=== PATIENT | female | born 1970 | race Caucasian/White ===

== ENCOUNTER → 2017-06-24 | Outpatient (CLI) | payer BC, OTHER ==
--- NOTE | 2017-06-27 13:32 | Diagnostic Imaging Report ---
INDICATION: Routine screening. COMPARISON: Comparison is made with prior study from 01/30/2008. The current study was also evaluated with a Computer Aided Detection (CAD) system. FINDINGS: Scattered fibroglandular densities are identified bilaterally. Circumscribed density in the inner aspect of the right breast is best seen on the CC view. This was not well visualized on prior exam. This could potentially represent a skin mole. The left breast appears stable. No malignant-appearing microcalcifications are seen. The axillae are unremarkable. IMPRESSION: Circumscribed density inner right breast on CC view. This could potentially represent a skin mole. Additional imaging is recommended. ACR BI-RADS Category 0: Incomplete. (Needs additional imaging evaluation). Result letter will be mailed to the patient. Note: At least 10% of breast cancer is not imaged by mammography. Dictated by: Dictated on workstation # [id number]
== END ==
LOC: RAD 09:36
PROVIDERS: ATTEND Obstetrics & Gynecology
DX: Z12.31 Encounter for screening mammogram for malignant neoplasm of breast (principal)
CPT/HCPCS: 77067

== ENCOUNTER → 2017-07-08 | Outpatient (CLI) | payer OTHER ==
--- NOTE | 2017-07-08 19:02 | Diagnostic Imaging Report ---
INDICATION: Right breast density. COMPARISON: Correlation is made with diagnostic mammogram earlier the same day. FINDINGS: Sonographic interrogation of the inner right breast was performed. There is a circumscribed hypoechoic mass just below the skin surface of the right breast at the 4 o'clock location, 10 cm from the nipple, measuring 8 mm x 5 mm x 7 mm. This demonstrates posterior acoustic enhancement. No internal vascularity is seen. Features are consistent with a sebaceous cyst. No other abnormalities are seen. IMPRESSION: Sebaceous cyst at the 4 o'clock location of the right breast at posterior depth corresponding with the mammographic abnormality. The patient may return to routine annual screening mammography. ACR BI-RADS Category 2: Benign findings. Dictated by: Dictated on workstation # [id number]
--- NOTE | 2017-07-08 19:02 | Diagnostic Imaging Report ---
INDICATION: Right breast density. Patient presents for additional views. Correlation is made with recent screening study from 06/24/2017. The current study was also evaluated with a Computer Aided Detection (CAD) system. Patient returned and 90 degree lateral view as well as spot compression CC and ML views were obtained utilizing 3-D mammography. There is a circumscribed density in the far posterior and inner aspect of the right breast best seen on the spot compression CC view. This appears just below the skin surface and may represent small cyst. No other abnormality is seen. IMPRESSION: Persistent circumscribed density far posterior right breast medially, perhaps a small cyst. Further evaluation with ultrasound is recommended. ACR BI-RADS Category 0: Incomplete. (Needs additional imaging evaluation). Result letter will be mailed to the patient. Note: At least 10% of breast cancer is not imaged by mammography. Dictated by: Dictated on workstation # [id number]
== END ==
LOC: RAD 08:09
PROVIDERS: ATTEND Obstetrics & Gynecology
DX: N60.81 Other benign mammary dysplasias of right breast (principal)

== ENCOUNTER → 2018-06-23 | Outpatient (CLI) | payer OTHER ==
--- NOTE | 2018-06-23 21:18 | Diagnostic Imaging Report ---
INDICATION: Routine screening. Comparison is made with prior mammogram from 06/24/2017. 2-D and 3-D bilateral screening mammography was performed with computer-aided Detection (CAD) system. FINDINGS: Scattered fibroglandular densities are identified bilaterally. Circumscribed density in the far posteromedial right breast appears stable. No new mass or malignant-appearing microcalcifications are seen. There is benign calcification on the left. The axillae are unremarkable. IMPRESSION: No mammographic features suspicious for malignancy are identified. ACR BI-RADS Category 2: Benign findings. Result letter will be mailed to the patient. Note: At least 10% of breast cancer is not imaged by mammography. Dictated by: Dictated on workstation # [id number]
== END ==
LOC: RAD 07:16
PROVIDERS: ATTEND Obstetrics & Gynecology
DX: Z12.31 Encounter for screening mammogram for malignant neoplasm of breast (principal)
CPT/HCPCS: 77067

== ENCOUNTER → 2019-06-29 | Outpatient (CLI) | payer OTHER ==
--- NOTE | 2019-07-02 08:45 | Diagnostic Imaging Report ---
INDICATION: Screening The current study was also evaluated with a Computer Aided Detection (CAD) system. 3-D Tomographic imaging was also performed. Comparison made with prior examination of 06/23/2018 and 06/24/2017. FINDINGS: There are scattered fibroglandular densities bilaterally. There is an unchanged benign-appearing nodular density medial right breast. Benign type calcification of left breast. There is no new dominant mass between lesion or suspicious calcination identified. Skin nipples and axilla are unremarkable. IMPRESSION: Category 2 benign. ACR BI-RADS Category 2: Benign findings. Result letter will be mailed to the patient. Note: At least 10% of breast cancer is not imaged by mammography. Dictated by: Dictated on workstation # [id number]
== END ==
LOC: RAD 15:37
PROVIDERS: ATTEND Obstetrics & Gynecology
DX: Z12.31 Encounter for screening mammogram for malignant neoplasm of breast (principal)
CPT/HCPCS: 77067

== ENCOUNTER → 2020-04-23 | Outpatient (CLI) | payer OTHER ==
[~2020-04-23] MED LIST: DCS100C PO; HYDR-34 PO; IBUP-844 PO; SIME80TA16 PO
--- NOTE | 2020-04-23 13:21 | Diagnostic Imaging Report ---
INDICATION: Lower back pain with radiation to the right leg. COMPARISON: None FINDINGS: Frontal and lateral views of the lumbar spine were obtained. Alignment and vertebral heights are maintained. There is no fracture or destructive process. Mild multilevel degenerative disease is noted in the lumbar spine. This consists of facet arthropathy and mild intervertebral disc height loss, greatest within the lower lumbar spine. Limited views of the abdomen demonstrate nonobstructive bowel gas pattern. IMPRESSION: 1. No acute fracture or dislocation of the lumbar spine. 2. Mild multilevel degenerative changes. Dictated by: Dictated on workstation # [id number]
== END ==
LOC: RAD 13:00
PROVIDERS: ATTEND Family Medicine
DX: M47.816 Spondylosis without myelopathy or radiculopathy, lumbar region (principal)
CPT/HCPCS: 72100

== ENCOUNTER → 2020-04-30 | Outpatient (CLI) | payer OTHER ==
--- NOTE | 2020-04-30 11:22 | Diagnostic Imaging Report ---
PROCEDURE: MRI lumbar spine. TECHNIQUE: Multiplanar, multisequence MRI of the lumbar spine was performed without contrast. INDICATION: Low back pain right leg pain There are no prior MRI examinations available for comparison. The plain film examination of the lumbar spine performed on 04/23/2020 noted multilevel degenerative change, particularly at L5-S1. The T2 parasagittal images of this exam reveal that the vertebral body heights and alignment are within normal limits. There is desiccation of the disks at every level. Furthermore at the L5-S1 level there is a focal disc protrusion to the right. The disc compresses the right ventral aspect of the thecal sac and does appear to encroach on the exiting right nerve root at this level. There is no significant neural foraminal narrowing on the left at L5-S1. The remainder of the lumbar spine is unremarkable for spinal stenosis or nerve root encroachment. There are mild disc bulge essentially at L2-L3, L3-L4 and L4-L5. There is no significant neural foraminal narrowing at these levels. There is no abnormal signal arising from the cord or the vertebral bodies to indicate an acute abnormality. There is no sign of a paraspinal mass. IMPRESSION: 1. There is a focal disc protrusion to the right at L5-S1. The disc compresses the right ventral aspect of thecal sac resulting in spinal stenosis. There is also encroachment of the exiting right nerve root at this level. 2. The remainder of the lumbar spine is unremarkable for spinal stenosis or nerve root encroachment. 3. There is no sign of an acute bony abnormality or cord lesion. Dictated by: Dictated on workstation # [id number]
== END ==
LOC: RAD 08:00
PROVIDERS: ATTEND Family Medicine
DX: M51.27 Other intervertebral disc displacement, lumbosacral region (principal); M48.07 Spinal stenosis, lumbosacral region
CPT/HCPCS: 72148

== ENCOUNTER → 2020-07-08 | Outpatient (CLI) | payer OTHER ==
--- NOTE | 2020-07-08 13:15 | Diagnostic Imaging Report ---
Indication: Routine screening. Comparison is made with prior mammogram 06/29/2019 and 06/23/2018. 2-D and 3-D bilateral screening mammography was performed with -. Scattered fibroglandular densities are identified bilaterally. A benign nodule in the medial posterior right breast appears stable. The parenchymal pattern is stable. No dominant mass or malignant appearing microcalcifications are seen. There are benign calcifications. Axillae are unremarkable. IMPRESSION: BI-RADS Category 2 No mammographic features suspicious for malignancy are identified. ACR BI-RADS Category 2: Benign findings. Result letter will be mailed to the patient. Note: At least 10% of breast cancer is not imaged by mammography. Dictated by: Dictated on workstation # [id number]
== END ==
LOC: RAD 08:15
PROVIDERS: ATTEND Obstetrics & Gynecology
DX: Z12.31 Encounter for screening mammogram for malignant neoplasm of breast (principal)
CPT/HCPCS: 77063; 77067

== ENCOUNTER 2020-07-24 15:53 | Outpatient (RCR) | payer OTHER | END 2020-09-04 | disposition home or self-care (01) | PROVIDERS: ATTEND Physical Medicine & Rehabilitation | DX: M51.17 Intervertebral disc disorders with radiculopathy, lumbosacral region (principal); Z72.0 Tobacco use; Z90.710 Acquired absence of both cervix and uterus ==

== ENCOUNTER 2021-02-18 10:20 | Outpatient (CLI) | payer OTHER ==
[~2021-02-18 10:20] MED LIST changes: -DCS100C PO; +DOCU-239 PO
== END 2021-02-18 10:33 ==
LOC: SLEEP 10:20
PROVIDERS: ATTEND Otolaryngology Otolaryngology/Facial Plastic Surgery
DX: G47.33 Obstructive sleep apnea (adult) (pediatric) (principal)
CPT/HCPCS: G0399

== ENCOUNTER → 2023-02-04 | Outpatient (CLI) | payer OTHER ==
--- NOTE | 2023-02-04 10:02 | Diagnostic Imaging Report ---
INDICATION: Left great toe pain 3 views of the left big toe show narrowing of the MTP joint. There is no fracture or dislocation. IMPRESSION: Degenerative changes left 1st MTP joint. The remainder of the chest are unremarkable. No acute abnormality seen. Dictated by: Dictated on workstation # [id number]
== END ==
LOC: RAD 09:23
PROVIDERS: ATTEND Family Medicine
DX: M19.072 Primary osteoarthritis, left ankle and foot (principal)
CPT/HCPCS: 73660

== ENCOUNTER → 2023-04-19 | Outpatient (CLI) | payer OTHER ==
--- NOTE | 2023-04-19 15:39 | Diagnostic Imaging Report ---
EXAMINATION: Bilateral screening mammogram with CAD. INDICATION: Screening. COMPARISON: This study was compared to the prior exams of 07/08/2020 and 06/29/2019. PERSONAL HISTORY: At this time, there are no current complaints. FINDINGS: There are scattered areas of fibroglandular density. Overall, there does not appear to have been any significant change when compared to the prior exam. There is no primary or secondary sign of malignancy noted. IMPRESSION: 1. There is no evidence for malignancy. 2. The patient should have her annual bilateral screening mammogram on schedule in April 2024. ACR BI-RADS Category 1: Negative. Result letter will be mailed to the patient. Note: At least 10% of breast cancer is not imaged by mammography. Dictated by: Dictated on workstation # [id number]
== END ==
LOC: RAD 07:31
PROVIDERS: ATTEND Obstetrics & Gynecology
DX: Z12.31 Encounter for screening mammogram for malignant neoplasm of breast (principal)
CPT/HCPCS: 77063; 77067